=== PATIENT | female | born 1950 | race Caucasian/White ===

== ENCOUNTER → 2017-06-21 | Outpatient (CLI) | payer MEDICARE, OTHER ==
[~2017-06-21] MED LIST: CATHETER FLUSH 10 ML SYR IV PRN; REGADENOSON 0.4 MG/5 ML SYR (LEXISCAN) IV ONE
[2017-06-21 09:38] VITALS: BP 147/81
--- NOTE | 2017-06-21 21:05 | STRESS TEST ---
DATE OF SERVICE: 06/21/2017 LEXISCAN MYOVIEW STRESS TEST REPORT Baseline heart rate is 71. Baseline blood pressure is 147/81. Baseline EKG is sinus rhythm with no ischemic changes. In summary, the patient was injected with 10.50 mCi of technetium-99 Myoview and the resting images were obtained. Then, the patient received 0.4 mg of Lexiscan followed by 31.9 mCi of technetium-99 Myoview. Throughout the test, there were no EKG changes. The resting and stress images were reviewed and compared in the short axis, horizontal long axis and vertical long axis views. Review of the images showed breast attenuation with reversible ischemia involving the whole anterior wall, anterolateral wall and inferolateral wall. SSS is 21. SDS 15, TID value 0.98. On the gated images, the left ventricle appeared to be in normal size with normal contractility. Calculated ejection fraction is 73%. CONCLUSION: 1. The patient tolerated Lexiscan well. 2. Reversible ischemia involving the whole anterior wall, anterolateral wall and inferolateral wall. 3. Normal left ventricular size with normal contractility. Calculated ejection fraction is 71%. Job ID: [id number] DocumentID: [id number] Dictated Date: 06/21/2017 15:47:16 Financial Reporting Advisor Date: 06/21/2017 21:04:31 Dictated By: TAMRA KIM MD
== END ==
LOC: CARD 07:45
PROVIDERS: ATTEND Internal Medicine Cardiovascular Disease
DX: I25.10 Atherosclerotic heart disease of native coronary artery without angina pectoris (principal); R06.09 Other forms of dyspnea; I10 Essential (primary) hypertension; R01.1 Cardiac murmur, unspecified; E66.9 Obesity, unspecified
CPT/HCPCS: 78452; 93017

== ENCOUNTER 2017-06-28 06:46 | Day surgery (SDC) | payer MEDICARE, OTHER ==
[2017-06-28] VITALS (9 sets, daily range): BP systolic 119–133; BP diastolic 72–88
[~2017-06-28] VITALS: Ht 165.1 cm; Wt 132.4 kg
[2017-06-28] MEDS ORDERED: LIDOCAINE 1% INJ 50 ML (XYLOCAINE) VIAL ONE (06:56)
[2017-06-28] MEDS ORDERED: NS IV 1000 ML 1,000 ML ONE (06:56)
[2017-06-28] MEDS ORDERED: HEParin (CATH LAB) 2,000 ML IV ONE (06:56)
[2017-06-28] MEDS ORDERED: NS IV 1000 ML 1,000 ML IV SCH ×2 (07:00→09:13)
[2017-06-28 07:33] LABS: BILIRUBIN,URINE NEGATIVE (NEGATIVE); CLARITY,URINE SLIGHTLY CLOUDY; COLOR,URINE YELLOW; GLUCOSE, URINE (UA) NEGATIVE (NEGATIVE); KETONES,URINE NEGATIVE (NEGATIVE); LEUKOCYTE ESTERASE ,URINE 3+ (NEGATIVE); NITRITE,URINE NEGATIVE (NEGATIVE); PH,URINE 5 (5-9); PROTEIN,URINE 2+ (NEGATIVE); UROBILINOGEN,URINE 1 MG/DL (NORMAL)
[2017-06-28 07:34] LABS: HEMOGLOBIN 14.7 G/DL (11.5-16.0); MEAN PLATELET VOLUME 12.1 FL (7.4-10.4); RED BLOOD COUNT 4.46 10^6/uL (4.35-5.85); RED CELL DISTRIBUTION WIDTH 12.4 % (10.0-14.5); WHITE BLOOD COUNT 7.9 10^3/uL (4.3-11.0)
--- NOTE | 2017-06-28 07:38 | Diagnostic Imaging Report ---
INDICATION: Pre-heart catheter. FINDINGS: Portable chest show the lungs to be well-aerated and clear. The heart is not enlarged. There is no pulmonary edema. No hilar adenopathy. No pneumothorax or pleural effusion. IMPRESSION: Normal portable chest. Dictated by: Dictated on workstation # [id number]
[2017-06-28 07:41] LABS: BACTERIA,URINE FEW /HPF; HYALINE CASTS, URINE >50 /LPF; WBC,URINE 50-100 /HPF
[2017-06-28 07:44] LABS: PROTHROMBIN TIME PATIENT 13.1 SEC (12.2-14.7)
[2017-06-28] MEDS ORDERED: METO-333 PO (07:51)
[2017-06-28] MEDS ORDERED: VENL150C PO (07:51)
[2017-06-28] MEDS ORDERED: IBUP-2055 PO (07:51)
[2017-06-28] MEDS ORDERED: VALS160T28 PO (07:51)
[2017-06-28 07:53] LABS: ALBUMIN 4.3 GM/DL (3.2-4.5); BILIRUBIN,TOTAL 0.7 MG/DL (0.1-1.0); CALCIUM 9.2 MG/DL (8.5-10.1); CREATININE SERUM 1.01 MG/DL (0.60-1.30); POTASSIUM 4.5 MMOL/L (3.6-5.0); TOTAL PROTEIN 7.7 GM/DL (6.4-8.2)
[2017-06-28] MEDS ORDERED: MIDAZOLAM 5 MG/5 ML (VERSED) VIAL ONE (08:06)
[2017-06-28] MEDS ORDERED: fentaNYL INJECTION 100 MCG/2 ML AMP ONE (08:06)
[2017-06-28] MEDS ORDERED: VERAPAMIL 5 MG/2 ML (CALAN) VIAL IV ONE (08:06)
[2017-06-28] MEDS ORDERED: NITROGLYCERIN DRIP 25 MG/D5W 250 ML IV ONE (08:06)
[2017-06-28] MEDS ORDERED: HEParin 1000 UNIT/ML (10ML VIAL) FOR BOLUS ONE (08:06)
[2017-06-28] MEDS ORDERED: INFLUENZA TRIvalent 2017-2018 0.5 ML/45 MCG SYR IM ONE (08:15)
--- NOTE | 2017-06-28 08:46 | Cardiac Procedure Note-CS/ASA ---
Pre-Procedure Note Pre-Op Procedure Note H&P Reviewed The H&P was reviewed, patient examined and no changes noted. Date H&P Reviewed: Jun 28, 2017 Time H&P Reviewed: 08:45 Conscious Sedation Pre-Proced Time Reviewed: 08:45 ASA Class: 3 Airway Mallampati Classification: ([place] appropriate class) I. II. III, IV Lungs Heart ASA score ASA 1: a normal healthy patient ASA 2: a patient with a mild systemic disease (mid diabetes, controlled hypertension, obesity x ASA 3: a patient with a severe systemic disease that limits activity (angina , COPD, prior Myocardial infarction) ASA 4: a patient with an incapacitating disease that is a constant threat to life (CHF, renal failure) ASA 5: a moribund patient not expected to survive 24 hrs. (ruptured aneurysm) ASA 6: a declared brain patient whose organs are being harvested. For emergent operations, add the letter E after the classification Grade 3 Sedation Plan: Analgesia, Amnesia, Plan communicated to team members, Discussed options with patient/fam, Discussed risks with patient/fam Note The patient is an appropriate candidate to undergo the planned procedure, sedation, and anesthesia. The patient immediately re-assessed prior to indication. TAMRA KIM MD Jun 28, 2017 08:45
[2017-06-28] MEDS ORDERED: ATOR10TA PO (09:16)
--- NOTE | 2017-06-28 09:17 | Discharge Inst-Post CATH ---
Discharge Inst-CATH Post Cardiac Cath D/C Inst Follow Up/Plan Appointment with Dr Newell's office in 2-4 weeks CARDIAC CATH DISCHARGE INSTRUCTIONS *Hold Metformin for 48 hours post heart cath. ACTIVITY * Go Home directly and rest. * Limit activity of the leg (or wrist if it was used) for 7 days including aerobics, swimming, jogging, bicycling, etc. * Restrict stair-climbing for 7 days if possible, if not, climb up with your non -cath leg, then bring together on the same step. * Avoid lifting, pushing, pulling or excessive movement of the affected extremity for 7 days. * Customary sexual activity may be resumed after 2 days-use caution not to use a position that strains or causes pain to the affected extremity. * No driving for 24 hours. * NO SMOKING. * Avoid straining for bowel movements for 7 days. * Gentle walking on level ground is allowed. * Returning to work will depend on the type of procedure and the results. Your doctor will discuss this with you. CALL YOUR DOCTOR FOR ANY OF THE FOLLOWING: *If bleeding from the puncture site occurs- Apply gentle pressure to site with clean cloth and call your doctor or EMS. * If a knot or lump forms under the skin, increases in size, or causes pain. * If bruising appears to be worsening or moving further down your leg instead of disappearing. * Temperature above 101 F. CARE OF YOUR GROIN INCISION; * Bruising or purple discoloration of the skin near the puncture site is common. * You may shower only, no bathtub bathing for 5 days. Be careful to avoid slipping as your leg may feel stiff. * If a closure device was used on your femoral artery, please see the attached guide regarding care of the device and your leg. * REMOVE the dressing from your groin the next day after your procedure in the shower. CARE OF YOUR WRIST INCISION; * Bruising or purple discoloration of the skin near the puncture site is common. * You may shower. * DO NOT submerge wrist. * Remove dressing in 24 hours. TAMRA NEWELL MD Jun 28, 2017 09:17
--- NOTE | 2017-06-28 09:22 | Cardiac Cath Report ---
Cardiac Cath Report Physician (s)/Recreation Facility Manager (s) Physician TAMRA KIM MD Pre-Procedure Diagnosis Pre-Procedure Diagnosis: Coronary artery disease Post-Procedure Note Procedure Start Date: Jun 28, 2017 Name of Procedure: Left heart catheterization, left ventricular gram Findings/Procedure Note PROCEDURE NOTE: After explaining the procedure to the patient, all pros and cons were explained, all questions were answered. The patient signed the consent and then she was placed on the cardiac catheterization laboratory. The patient was placed on the cardiac catheterization laboratory. Groin and wrist was prepped SL fashion local anesthesia was used. Sheath placed in the right radial artery. Chilo catheter was used for coronary and left ventriculogram At the end of the procedure the sheath was removed. Vascuband was used FINDINGS: Hemodynamics LV 106 / 5 and diastolic pressure of 5 Aorta 109/73 mean of 78 ANATOMY: Left Main is free of obstructive disease Left Anterior Descending is slightly tortuous with slow flow, small vessel disease obstructive disease Left Circumflex is nondominant Right Coronory Artery is dominant artery, slow flow, small vessel disease nonobstructive disease LV Gram was done, normal left ventricular size and contracts 50 estimated ejection fraction 60-65 percent CONCLUSION: 1. Small vessel disease with slow flow in the LAD and right coronary artery, nonobstructive disease 2. Normal left ventricular size with normal contracted TSH ejection fraction 60 percent DISCUSSION AND RECOMMENDATION: Maximize medical therapy, monitor as an outpatient. Started on Lipitor in addition to her current medication Anesthesia Type: Conscious Sedation Estimated blood loss (mL): 5 ml Contrast Amount: 45 ml Total Radiation Dose: 1189 mGy Post-Procedure Diagnosis Post-operative diagnosis: Coronary artery disease Chest pain nonspecific etiology Hypertension Hyperlipidemia TAMRA KIM MD Jun 28, 2017 09:22
== END 2017-06-28 11:45 | disposition home or self-care (01) ==
LOC: CATH 06:46 → SURG 09:34 → CATH 11:45
PROVIDERS: ATTEND Physician Assistant
DX: I25.10 Atherosclerotic heart disease of native coronary artery without angina pectoris (principal); Z11.2 Encounter for screening for other bacterial diseases; I10 Essential (primary) hypertension; I35.0 Nonrheumatic aortic (valve) stenosis; R82.90 Unspecified abnormal findings in urine; E78.5 Hyperlipidemia, unspecified; E66.9 Obesity, unspecified; Z68.41 Body mass index [BMI] 40.0-44.9, adult; Z96.653 Presence of artificial knee joint, bilateral
CPT/HCPCS: 36415; 71045; 80053; 80061; 81000; 85027; 85610; 85730; 87077; 87081; 87088; 93458

== ENCOUNTER → 2018-12-31 | Outpatient (CLI) | payer MEDICARE, OTHER ==
[~2018-12-31] MED LIST changes: +ATOR10TA PO; -CATHETER FLUSH 10 ML SYR IV PRN; +IBUP-2055 PO; +METO-333 PO; -REGADENOSON 0.4 MG/5 ML SYR (LEXISCAN) IV ONE; +VALS160T29 PO; +VENL150C PO
== END ==
LOC: CARD 13:13
PROVIDERS: ATTEND Physician Assistant
DX: I11.9 Hypertensive heart disease without heart failure (principal); I35.0 Nonrheumatic aortic (valve) stenosis; I25.10 Atherosclerotic heart disease of native coronary artery without angina pectoris
CPT/HCPCS: 93306

== ENCOUNTER → 2019-03-28 | Outpatient (CLI) | payer MEDICARE, OTHER | LOC: RAD 14:51 | PROVIDERS: ATTEND Nurse Practitioner Family | DX: Z12.31 Encounter for screening mammogram for malignant neoplasm of breast (principal) | CPT/HCPCS: 77067 ==

== ENCOUNTER 2020-03-04 21:22 | Emergency (ER) | payer MEDICARE, OTHER ==
[~2020-03-04] VITALS: Ht 172 cm; Wt 138.7 kg
[~2020-03-04 21:22] MED LIST changes: -IBUP-2055 PO; +IBUP-2473 PO
--- NOTE | 2020-03-04 21:44 | ED Fall/Injury ---
General Chief Complaint: Trauma-Non Activation Stated Complaint: FALL;TRAUMA NONACTIVATION Source: patient Exam Limitations: no limitations History of Present Illness Date Seen by Provider: Mar 04, 2020 Time Seen by Provider: 21:25 Initial Comments Patient is a 69yo female who presents to the ER by ambulance after a fall at home tonight. SHe states that she was bending over to pick something off the floor and lost her balance. She came down on her knees and then fell forward hitting her face on the edge of a cabinet. Patient denies any loss of consciousness. She is not having any visual changes. She denies severe headache. No nausea or vomiting. Patient is concerned about the amount of bruising and contusion to her right eye. All other review of systems reviewed and negative except as stated Location Injury Occurred: home Occurred: just prior to arrival (2029) Severity: moderate Injuries/Pain Location: face Context: lost balance, slipped Loss of Consciousness: no loss of consciousness Associated Symptoms (Fall): Denies Symptoms Allergies and Home Medications Allergies Coded Allergies: No Allergy Information Available (Unverified , 06/21/17) Home Medications Atorvastatin Calcium 10 Mg Tablet, 10 MG PO DAILY Prescribed by: TAMRA KIM on 06/28/17 0916 Ibuprofen 200 Mg Tablet, 200 MG PO PRN, (Reported) Metoprolol Tartrate 25 Mg Tablet, 12.5 MG PO DAILY, (Reported) Valsartan 160 Mg Tablet, 160 MG PO DAILY, (Reported) Venlafaxine HCl 150 Mg Cap.er.24h, 150 MG PO DAILY, (Reported) Patient Home Medication List Home Medication List Reviewed: Yes Review of Systems Review of Systems Constitutional: no symptoms reported Eyes: No Symptoms Reported; Denies Blurred Vision, Denies Vision Changes Ears, Nose, Mouth, Throat: no symptoms reported Respiratory: no symptoms reported Cardiovascular: no symptoms reported Gastrointestinal: no symptoms reported Musculoskeletal: no symptoms reported Skin: other (large contusion right eyebrow) Psychiatric/Neurological: Denies Headache, Denies Weakness Past Hwqihdi-Bqzcze-Aiznml Hx Patient Social History Alcohol Use: Regular Use Alcohol Beverage of Choice: Wine Recreational Drug Use: No Past Medical History Gastroesophageal Reflux Physical Exam Vital Signs Vital Signs - First Documented 03/04/20 03/04/20 21:25 22:22 Temp 36.7 Pulse 92 Resp 18 B/P (MAP) 167/89 (115) Pulse Ox 93 O2 Delivery Room Air Capillary Refill : Height, Weight, BMI Height: 5'5.00" Weight: 292lbs. 0.0oz. 132.920078vs; 48.6 BMI Method: General Appearance: WD/WN, no apparent distress HEENT: PERRL/EOMI, other (Patient has a large contusion with ecchymosis over the right brow, softball size) Neck: non-tender, full range of motion, normal inspection Cardiovascular: regular rate, rhythm, diastolic murmur Respiratory: chest non-tender, lungs clear, normal breath sounds, no resp iratory distress, no accessory muscle use Peripheral Pulses: 2+ Dorsalis Pedis (R), 2+ Left Dors-Pedis (L), 2+ Radial Pulses (R) Gastrointestinal: normal bowel sounds, non tender, soft Extremities: normal range of motion, non-tender, normal inspection Neurologic/Psychiatric: automobile brake bonder II-XII nml as tested, no motor/sensory deficits, alert, normal mood/affect, oriented x 3 Skin: ecchymosis (right supraorbital area, small abrasion) [place] Coma Score Best Eye Response: (4) Open Spontaneously Best Verbal Response: (5) Oriented Best Motor Response: (6) Obeys Commands April Total: 15 Progress/Results/Core Measures Results/Orders Vital Signs/I&O 03/04/20 03/04/20 21:25 22:22 Temp 36.7 Pulse 92 91 Resp 18 18 B/P (MAP) 167/89 (115) 149/88 (115) Pulse Ox 93 92 O2 Delivery Room Air Progress Progress Note : Progress Note Patient seen and examined. 69 yo with a mechanical trip and fall at home hitting her face on the corner of a cabinet. Patient eval includes a neurologic exam. She is alert and oriented, normal cranial nerves. No motor or sensory findings. Patient was observed in the ER and did well. Ambulatory without any complaints or n/v/headache. Supportive care at home, with ice packs to her large contusion above her right brow. Patient is counselled on head injury precautions and concussion. She verbalizes understanding. She is comfortable with the plan of care. All questions are sought and answered and she is stable for discharge. Departure Impression Primary Impression: Contusion of face Qualified Codes: S00.83XA - Contusion of other part of head, initial encounter Disposition: HOME, SELF-CARE Condition: Stable Departure-Patient Inst. Decision time for Depature: 21:52 Referrals: CLINT EVANGELISTA MD (PCP/Family) Primary Care Physician Patient Instructions: Eye Contusion (DC) Add. Discharge Instructions: Apply an ice pack off and on for the next 24 hours. You can take advil or tylenol as needed for pain. You can call the [facility] Referral line for a new doctor. Return to the Emergency Department for a re-evaluation of you have any new or worsening symptoms. All discharge instructions reviewed with patient and/or family. Voiced understanding. CARA DESIR MD Mar 04, 2020 21:44
--- NOTE | 2020-03-04 22:10 | NUR ---
PATIENT CALLS THIS RN TO ROOM ASKING "HAS IT BEEN 30MINUTES YET?" PATIENT STATES SHE FEELS FINE, DENIES NAUSEA. WILL REPORT TO DR REIS.
[2020-03-04 22:22] VITALS: BP 149/88
== END 2020-03-04 22:22 | disposition home or self-care (01) ==
LOC: EDUNIT# 21:22 → ER 21:23
DX: S00.83XA Contusion of other part of head, initial encounter (principal); R40.2410 Glasgow coma scale score 13-15, unspecified time; W01.0XXA Fall on same level from slipping, tripping and stumbling without subsequent striking against object, initial encounter; W22.8XXA Striking against or struck by other objects, initial encounter
CPT/HCPCS: 99282

== ENCOUNTER 2022-08-28 01:34 | Emergency (ER) | payer MEDICARE, OTHER ==
[~2022-08-28] VITALS: Ht 172.7 cm; Wt 136.0 kg
[~2022-08-28 01:34] MED LIST changes: -VENL150C PO; +VENL150C3 PO
[2022-08-28] MEDS ORDERED: OLME20TA24 (01:51)
[2022-08-28] MEDS ORDERED: LIDOCAINE 1% INJ 10 ML VIAL ONE (02:20)
[2022-08-28] MEDS ORDERED: AUGMENTIN 875 MG TAB (AMOXICILLIN/CLAVULANATE) PO STA (02:21)
[2022-08-28] MEDS ORDERED: AMOX1TAB12 PO ×2 (02:27→03:51)
--- NOTE | 2022-08-28 02:27 | ED Integumentary General ---
General Chief Complaint: Bite-Animal/Human/Insect Stated Complaint: LEFT ARM PAIN,DOG BITE Nursing Triage Note: bitten by family dog approx. 0120. pt reports dogs shots utd. pt reports last tetanus less than 5yrs ago. 2.5x7cm bite to left dorsal/distal arm. Source: patient Exam Limitations: no limitations History of Present Illness Date Seen by Provider: Aug 28, 2022 Time Seen by Provider: 02:10 Initial Comments Patient is a 72-year-old female who presents to the emergency department today with a chief complaint of dog bite to the left forearm. Patient states that she was sitting in her recliner chair with her 4 dogs sitting in her lap, everyone was sleeping. She woke up suddenly to the dogs fighting, she ended up on the floor trying to protect her smallest dog from the largest 1. She states she ended up getting bit. Tetanus shot is up-to-date for 5 months ago. She is not a diabetic. She complains of pain to the dorsum of the left forearm. She is right-hand dominant. No other complaints of injury or recent illness. Timing/Duration: just prior to arrival Severity: moderate Location: extremities (left upper) Possible Cause: other (dog bite) Associated Symptoms: other (pain) Allergies and Home Medications Allergies Coded Allergies: No Allergy Information Available (Unverified , 06/21/17) Patient Home Medication List Home Medication List Reviewed: Yes Amoxicillin/Potassium Clav (Amox Tr-K Clv 875-125 mg Tab) 875 Mg-125 Mg Tablet, 1 EACH PO BID Prescribed by: CARA DESIR on 08/28/22226 Olmesartan Medoxomil (Olmesartan Medoxomil) 20 Mg Tablet, (Reported) Entered as Reported by: MORENITA SUMMERS on 08/28/22 0151 Last Action: New Order Tramadol HCl (Tramadol HCl) 50 Mg Tablet, 50 MG PO Q6H PRN for PAIN Prescribed by: CARA DESIR on 08/28/22 033 Venlafaxine HCl (Effexor Xr) 150 Mg Cap.er.24h, 150 MG PO DAILY, (Reported) Entered as Reported by: SPENCER XAVIER on 06/28/17 0751 Discontinued Medications Atorvastatin Calcium (Lipitor) 10 Mg Tablet, 10 MG PO DAILY Discontinued Reason: No Longer Taking Prescribed by: TAMRA KIM on 06/28/17915 Last Action: Discontinued Ibuprofen (Ibuprofen) 200 Mg Tablet, 200 MG PO PRN, (Reported) Discontinued Reason: No Longer Taking Entered as Reported by: SPENCER XAVIER on 06/28/17750 Last Action: Discontinued Metoprolol Tartrate (Metoprolol Tartrate) 25 Mg Tablet, 12.5 MG PO DAILY, (Reported) Discontinued Reason: No Longer Taking Entered as Reported by: SPENCER XAVIER on 06/28/17750 Last Action: Discontinued Valsartan (Valsartan) 160 Mg Tablet, 160 MG PO DAILY, (Reported) Discontinued Reason: No Longer Taking Entered as Reported by: SPENCER XAVIER on 06/28/17750 Last Action: Discontinued Review of Systems Review of Systems Constitutional: see HPI Respiratory: no symptoms reported Cardiovascular: no symptoms reported Gastrointestinal: no symptoms reported Musculoskeletal: other (left wrist pain) Skin: other (large gaping wound left wrist) Past Mxvlcrk-Zynjzi-Ixpsza Hx Patient Social History Tobacco Use?: No Substance use?: No Alcohol Use?: Yes Alcohol Frequency: Once in a while Pt feels they are or have been: No Immunizations Up To Date First/Initial COVID19 Vaccinat: x2 Past Medical History Surgery/Hospitalization HX: htn, depression, bilateral knee, hip, ankle, cholecystectomy, face lift Gastroesophageal Reflux Physical Exam Vital Signs Vital Signs - First Documented 08/28/22 01:43 Temp 36.5 Pulse 133 Resp 18 B/P (MAP) 105/71 (82) Pulse Ox 93 O2 Delivery Room Air Capillary Refill : Less Than 3 Seconds General Appearance: WD/WN, no apparent distress HEENT: PERRL/EOMI Cardiovascular: regular rate, rhythm Respiratory: no respiratory distress, no accessory muscle use Extremities: other (limited ROM left shoulder due to pre-existing rotator cuff injury. left elbow normal ROM. left wrist - limited due to pain from dog bite) Neurologic/Psychiatric: alert, normal mood/affect, oriented x 3 Skin: normal color, warm/dry, other (large gaping wound dorsal left distal forearm. approx 7cm long and gaping 3cm. no active bleeding. extends through subq tissue to muscle belly. 2 small super ficial abrasions more prox on the dorsal forearm.) Procedures/Interventions Wound Location: Upper Extremities Other Wound Location dorsal wrist Wound Length (cm): 7 Wound's Depth, Shape: irregular, contused tissue, sub Q Wound Explored: clean Irrigated w/ Saline (ccs): 1000 Anesthesia: 1% Lidocaine Volume Anesthetic (ccs): 8 Wound Debrided: moderate Suture: Ethlion Suture Size: 4-0 Number of Sutures: 8 Layer Closure?: 1 Sterile Dressing Applied?: Yes Progress 2 horizontal mattress sutures and 6 superficial interrupted sutures Progress/Results/Core Measures Results/Orders My Orders Orders - CARA DESIR MD Wrist, Left, 3 Views Or More (08/28/22 02:21) Amoxicillin/Clavulanate Tablet (Augmenti (08/28/22 02:21) Lidocaine 1% Inj 10 Ml (Xylocaine 1% Inj (08/28/22 02:20) Tramadol Tablet (Ultram Tablet) (08/28/22 03:45) Medications Given in ED Current Medications Medications Dose Ordered Sig/Gian Route Start Time Stop Time Status Last Admin Dose Admin Lidocaine HCl 10 ml STK-MED ONCE .ROUTE 08/28/22 02:20 08/28/22 02:22 DC 08/28/22 02:28 10 ML Tramadol HCl 50 mg ONCE ONCE PO 08/28/22 03:45 08/28/22 03:46 DC 08/28/22 03:47 50 MG Vital Signs/I&O 08/28/22 08/28/22 08/28/22 01:43 03:40 03:47 Temp 36.5 36.7 36.5 Pulse 133 101 Resp 18 16 B/P (MAP) 105/71 (82) 107/73 Pulse Ox 93 95 O2 Delivery Room Air Room Air Blood Pressure Mean: 82 Diagnostic Imaging Diagonstic Imaging: Xray Comments wrist xray - independent interpretation by me - no fracture or foreign body Departure Impression Primary Impression: Dog bite Qualified Codes: W54.0XXA - Bitten by dog, initial encounter Disposition: 01 HOME, SELF-CARE Condition: Improved Departure-Patient Inst. Decision time for Depature: 03:35 Patient Instructions: Animal Bites ED Add. Discharge Instructions: Keep the wound clean dry and covered. You can change the dressing in 24 hours. Tramadol 50mg, 1 tablet every 6 hours as needed for pain. You can also take over the counter ibuprofen 600mg every 6 hours with food for pain. Wash with a mild soap and water twice daily. Take the antibiotics 1 pill twice a day for 7 days. Finish the entire course. Your stitches will need to come out in 10 to 12 days. You can come back here to the emergency department and a nurse in triage will remove them after doing a wound evaluation. Call Dr Laureano's office on Monday for a follow up appointment at the beginning of the week. She can refer you in to a wound care appointment. If you develop increasing pain, redness, swelling or drainage from the wound please return to the emergency department for reevaluation. Scripts Tramadol HCl (Tramadol HCl) 50 Mg Tablet 50 MG PO Q6H PRN for PAIN, #8 TAB 0 Refills Prov: CARA DESIR MD 08/28/22 Amoxicillin/Potassium Clav (Amox Tr-K Clv 875-125 mg Tab) 875 Mg-125 Mg Tablet 1 EACH PO BID, #13 TAB Prov: CARA DESIR MD 08/28/22 Copy Copies To 1: CLINT EVANGELISTA MD, KATHRYN M MD Aug 28, 2022 02:27
[2022-08-28] MEDS ORDERED: TRM50T PO ×2 (03:37→03:51)
[2022-08-28 03:40] VITALS: BP 107/73
--- NOTE | 2022-08-28 06:47 | Diagnostic Imaging Report ---
Indication: Dogbite. Findings: Soft tissue irregularities about the dorsum of the distal forearm as well as a along its radial margin. No retained opaque foreign body identified and no appreciable fracture. No dissecting gas. There are arthritic changes to the carpus. Impression: Soft tissue injury and degenerative disease. No retained opaque foreign body or acute osseous injury apparent. Dictated by: Dictated on workstation # [id number]
== END 2022-08-28 03:48 | disposition home or self-care (01) ==
LOC: EDUNIT# 01:34 → ER 01:39
DX: S51.852A Open bite of left forearm, initial encounter (principal); W54.0XXA Bitten by dog, initial encounter
CPT/HCPCS: 11010; 12034; 73110

== ENCOUNTER 2022-12-13 14:23 | Outpatient (RCR) | payer MEDICARE, OTHER ==
[~2022-12-13 14:23] MED LIST changes: +AMOX1TAB12 PO; +OLME20TA24; +TRM50T PO
== END 2022-12-19 | disposition home or self-care (01) ==
PROVIDERS: ATTEND Orthopaedic Surgery
DX: Z96.612 Presence of left artificial shoulder joint (principal)

== ENCOUNTER 2023-01-17 11:26 | Outpatient (RCR) | payer MEDICARE, OTHER | END 2023-01-19 | disposition home or self-care (01) | PROVIDERS: ATTEND Orthopaedic Surgery | DX: Z96.612 Presence of left artificial shoulder joint (principal) ==

== ENCOUNTER 2023-03-25 03:17 | Emergency (ER) | payer MEDICARE, OTHER ==
[~2023-03-25] VITALS: Ht 173 cm; Wt 136.0 kg
--- NOTE | 2023-03-25 03:31 | ED Fall/Injury ---
General Stated Complaint: FALL Source: patient History of Present Illness Date Seen by Provider: Mar 25, 2023 Time Seen by Provider: 03:19 Initial Comments PT ARRIVES VIA EMS FROM HOME--PT LIVES AT HOME ALONE WITH HER DOGS NO TREATMENT OR IMMOBILIZATION BY EMS--CERVICAL COLLAR PLACED ON ARRIVAL TO ER PT HAD AN UNWITNESSED FALL AT HOME PT STATES SHE SLIPPED ON WATER ON THE FLOOR AND FELL FACE DOWN ONTO TILE FLOOR SHE C/O PAIN TO HER HEAD AND FACE SHE ALSO C/O LEFT KNEE PAIN --LANDED ON BOTH KNEES, BUT PAIN IS MOSTLY ON THE LEFT SHE DENIES LOSS OF CONSCIOUSNESS HAS LACERATION AND LARGE HEMATOMA TO FOREHEAD SHE ALSO HAS LARGE LACERATION TO LEFT KNEE SHE HAS HAD BILATERAL KNEE REPLACEMENTS SHE DENIES NECK OR BACK PAIN DENIES CHEST OR ABDOMINAL PAIN DENIES SHORTNESS OF BREATH DENIES NAUSEA/VOMITING DENIES VISION CHANGES DENIES DIZZINESS DENIES PARESTHESIAS OR MOTOR DEFICITS. PT STATES SHE HAS BEEN DRINKING WINE TONIGHT--"HALF A BOTTLE" PT DRINKS ON A REGULAR BASIS SHE STATES SHE IS NOT ON ASPIRIN OR BLOOD THINNERS STATES SHE IS UP TO DATE ON TETANUS VACCINATION--ABOUT A YEAR AGO. PCP: DR. YI, WITH [place] Allergies and Home Medications Allergies Coded Allergies: No Allergy Information Available (Unverified , 06/21/17) Patient Home Medication List Home Medication List Reviewed: Yes Amoxicillin/Potassium Clav (Amox Tr-K Clv 875-125 mg Tab) 875 Mg-125 Mg Tablet, 1 EACH PO BID Prescribed by: CARA DESIR on 08/28/22350 Cephalexin (Cephalexin) 500 Mg Tablet, 500 MG PO QID Prescribed by: ZULEMA RICE on 03/25/23512 Olmesartan Medoxomil (Olmesartan Medoxomil) 20 Mg Tablet, (Reported) Entered as Reported by: MORENITA SUMMERS on 08/28/22 015 Tramadol HCl (Tramadol HCl) 50 Mg Tablet, 50 MG PO Q6H PRN for PAIN Prescribed by: CARA DESIR on 08/28/22351 Tramadol HCl (Tramadol HCl) 50 Mg Tablet, 50 MG PO Q4H Prescribed by: ZULEMA RICE on 03/25/23512 Venlafaxine HCl (Effexor Xr) 150 Mg Cap.er.24h, 150 MG PO DAILY, (Reported) Entered as Reported by: SPENCER XAVIER on 06/28/17 0751 Review of Systems Review of Systems Constitutional: no symptoms reported Eyes: No Symptoms Reported Ears, Nose, Mouth, Throat: no symptoms reported Respiratory: no symptoms reported Cardiovascular: no symptoms reported Gastrointestinal: no symptoms reported Genitourinary: no symptoms reported Musculoskeletal: see HPI Skin: see HPI Psychiatric/Neurological: See HPI Past Qwzsets-Xgklzz-Sxagnq Hx Patient Social History Tobacco Use?: No Substance use?: No Alcohol Use?: Yes Alcohol type: Wine Alcohol Frequency: Daily Immunizations Up To Date First/Initial COVID19 Vaccinat: x2 Past Medical History Surgery/Hospitalization HX: htn, depression, bilateral knee, hip, ankle, cholecystectomy, face lift Surgeries: Yes Gallbladder, Joint Replacement, Orthopedic Respiratory: No Cardiac: Yes Hypertension 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 0.0oz. 132.172053cm; 45.00 BMI Method: General Appearance: WD/WN, no apparent distress, obese, other (REEKS OF ALCOHOL) HEENT: PERRL/EOMI, TMs normal, pharynx normal, other (LARGE HEMATOMA AND 2 CM LACERATION TO FOREHEAD) Neck: other (PLACED IN CERVICAL COLLAR ON ARRIVAL) Cardiovascular: no murmur, tachycardia Respiratory: chest non-tender, normal breath sounds, no respiratory distress Gastrointestinal: non tender, soft Back: no CVA tenderness Extremities: normal range of motion, normal capillary refill, pedal edema (TRACE BILATERALLY), other (BRUISING TO RIGHT KNEE; IRREGULAR 7 CM C-SHAPED VERY SUPEFICIAL FLAP LACERATION/SKIN TEAR TO LEFT KNEE, WITH SWELLING AND BRUISING. BOTH KNEES TENDER, BUT LEFT > RIGHT. 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 INJECTED WITH 1% LIDOCAINE PLAIN CLOSED WITH # 14 MARJORIE LEFT KNEE DRESSED STERILE DRESSING Progress/Results/Core Measures Results/Orders Lab Results Laboratory Tests Test 03/25/23 03:35 Range/Units White Blood Count 8.1 4.3-11.0 10^3/uL Red Blood Count 4.12 3.80-5.11 10^6/uL Hemoglobin 14.1 11.5-16.0 g/dL Hematocrit 43 35-52 % Mean Corpuscular Volume 104 H 80-99 fL Mean Corpuscular Hemoglobin 34 25-34 pg Mean Corpuscular Hemoglobin Concent 33 32-36 g/dL Red Cell Distribution Width 12.6 10.0-14.5 % Platelet Count 244 130-400 10^3/uL Mean Platelet Volume 11.5 9.0-12.2 fL Immature Granulocyte % (Auto) 1 % Neutrophils (%) (Auto) 67 42-75 % Lymphocytes (%) (Auto) 24 12-44 % Monocytes (%) (Auto) 5 0-12 % Eosinophils (%) (Auto) 3 0-10 % Basophils (%) (Auto) 1 0-10 % Neutrophils # (Auto) 5.4 1.8-7.8 10^3/uL Lymphocytes # (Auto) 2.0 1.0-4.0 10^3/uL Monocytes # (Auto) 0.4 0.0-1.0 10^3/uL Eosinophils # (Auto) 0.2 0.0-0.3 10^3/uL Basophils # (Auto) 0.1 0.0-0.1 10^3/uL Immature Granulocyte # (Auto) 0.0 0.0-0.1 10^3/uL Prothrombin Time 12.8 12.2-14.7 SEC INR Comment 0.9 0.8-1.4 Activated Partial Thromboplast Time 26 24-35 SEC Sodium Level 141 135-145 MMOL/L Potassium Level 4.0 3.6-5.0 MMOL/L Chloride Level 108 H 98-107 MMOL/L Carbon Dioxide Level 18 L 21-32 MMOL/L Anion Gap 15 H 5-14 MMOL/L Blood Urea Nitrogen 19 H 7-18 MG/DL Creatinine 0.82 0.60-1.30 MG/DL Estimat Glomerular Filtration Rate 76 BUN/Creatinine Ratio 23 Glucose Level 100 70-105 MG/DL Calcium Level 8.6 8.5-10.1 MG/DL Corrected Calcium 8.8 8.5-10.1 MG/DL Total Bilirubin 0.2 0.1-1.0 MG/DL Aspartate Amino Transf (AST/SGOT) 21 5-34 U/L Alanine Aminotransferase (ALT/SGPT) 21 0-55 U/L Alkaline Phosphatase 75 40-136 U/L Total Protein 6.7 6.4-8.2 GM/DL Albumin 3.8 3.2-4.5 GM/DL Serum Alcohol 169 H <10 MG/DL My Orders Orders - ZULEMA RICE DO Ed Iv/Invasive Line Start (03/25/23 03:25) Monitor-Rhythm Ecg Trace Only (03/25/23 03:25) Ct Head/Face/Cervical Wo (03/25/23 03:25) Alcohol (03/25/23 03:25) Cbc And Automated Diff (03/25/23 03:25) Comprehensive Metabolic Panel (03/25/23 03:25) Protime With Inr (03/25/23 03:25) Partial Thromboplastin Time (03/25/23 03:25) Chest 1 View, Ap/Pa Only (03/25/23 03:25) Pelvis 1 To 2 Views (03/25/23 03:25) Knee, Bilateral, W/Barry 4v. (03/25/23 03:25) Cervical Collar (03/25/23 03:25) Ed Iv/Invasive Line Start (03/25/23 03:42) Lactated Ringers 1,000 Ml (Lactated Ring (03/25/23 03:45) Ondansetron Injection (Ondansetron Inj (03/25/23 04:15) Ondansetron Injection (Ondansetron Inj (03/25/23 04:02) Rx-Cephalexin Capsule (Rx-Keflex Capsule (03/25/23 05:02) Wound Dressing-Ed (03/25/23 05:02) Medications Given in ED Current Medications Medications Dose Ordered Sig/Gian Route Start Time Stop Time Status Last Admin Dose Admin Lactated Ringer's 1,000 ml @ 0 mls/hr Q0M ONCE IV 03/25/23 03:45 03/25/23 03:46 DC 03/25/23 04:20 0 MLS/HR Ondansetron HCl 8 mg ONCE ONCE IVP 03/25/23 04:15 03/25/23 04:16 DC 03/25/23 04:10 8 MG Vital Signs/I&O 03/25/23 03:20 Temp 36.5 Pulse 113 Resp 18 B/P (MAP) 117/82 (94) Pulse Ox 94 O2 Delivery Room Air Progress Progress Note : Progress Note VITALS ON ARRIVAL: TEMP 36.5=97.7, HR 113, RR 18, BP 117/82, O2 SAT 94% ON ROOM AIR GIVEN: -IV FLUIDS LABS: -CBC NORMAL -CMP UNREMARKABLE -PT/PTT/INR NORMAL -ETOH 169 CT HEAD/MAXILLOFACIALS/CERVICAL SPINE--SOFT TISSUE INJURY TO FRONTAL AREA, AND NO ACUTE INTRACRANIAL OR BONY INJURY XRAYS OF CHEST, PELVIS AND BILATERAL KNEES -NO ACUTE PROCESS, PENDING RADIOLOGIST REVIEW VITALS STABLE CERVICAL COLLAR REMOVED AFTER RECEIVING CT RESULTS READ BY RADIOLOGIST NECK IS NON-TENDER TO PALPATION AND PT DENIES ANY NECK PAIN AFTER REMOVAL. ` PT IS NEUROLOGICALLY INTACT SHE DENIES HEADACHE OR NAUSEA/VOMITING OR DIZZINESS, OR PARESTHESIAS OR VISION CHANGES. DISCUSSED ALL TEST RESULTS, ANTICIPATED COURSE, SYMPTOMATIC TREATMENT, MEDICATIONS, NEED FOR FOLLOW UP AND RETURN PRECAUTIONS ALSO DISCUSSED WOUND CARE. DISCUSSED CONCERN ABOUT KNEE LACERATION, THE SKIN FLAP IS VERY THIN AND IS ESSENTIALLY A SKIN TEAR, AND THAT IT MAY NOT HOLD MARJORIE, AND EXPECTANT COURSE OF THE WOUND DISCUSSED LIMITING ANY BENDING OF LEFT KNEE UNTIL THE WOUND IS HEALED PT'S BODY HABITUS WILL NOT ACCOMODATE KNEE IMMOBILIZER, ADVISED TO KEEP THE AREA WRAPPED WITH JUAN ALBERTO WRAP TO LIMIT BENDING OF KNEE. REVIEWED PRIOR RECORDS--2 PRIOR ER VISITS, AND ONE VISIT WAS FOR A FALL WELL, Diagnostic Imaging Comments XRAYS ALL PENDING RADIOLOGIST REVIEW: CXR--NO ACUTE PROCESS PELVIS XRAY--NO ACUTE PROCESS BILATERAL KNEE XRAYS--NO ACUTE PROCESS, HARDWARE APPEARS INTACT CT HEAD/MAXILLOFACIALS/CERVICAL SPINE--PER [facility] VIA FAX AT 1944 -LARGE FOCAL SOFT TISSUE SWELLING, HEMATOMA AND LACERATION OVERLYING ANTERIOR LEFT FRONTAL BONE WITHOUT UNDERLYING CALVARIAL FRACTURE -NO ACUTE INTRACRANIAL HEMORRHAGE OR MASS OR ACUTE INTRACRANIAL FINDINGS. -UNREMARKABLE MAXILLOFACIAL CT -UNREMARKABLE CERVICAL SPINE CT Reviewed: Reviewed by Me Departure Impression Primary Impression: Unwitnessed fall Additional Impressions: Closed head injury Forehead contusion Forehead laceration Neck strain BILATERAL KNEE CONTUSIONS Laceration of left knee Alcohol intoxication Disposition: HOME, SELF-CARE Condition: Stable Departure-Patient Inst. Decision time for Depature: 05:05 Referrals: IRINA SMITH MD (PCP) Primary Care Physician Patient Instructions: Cervical Sprain ED, Concussion, Adult (DC), Contusion (DC), Eye Contusion (DC), Preventing Falls ED, Alcohol Intoxication ED, General Trauma, Adult ED Add. Discharge Instructions: ICE TO SORE AREAS AT 20 MINUTE INTERVALS ELEVATE LEGS MUCH POSSIBLE TYLENOL NEEDED FOR PAIN FOR THE FIRST 24 HOURS CONTINUE YOUR REGULAR MEDICATIONS PRESCRIBED FOR YOUR FOREHEAD WOUND---KEEP AREA CLEAN AND DRY. DO NOT GET WET. NO LOTIONS, CREAMS OR OINTMENTS. LEAVE THE AREA ALONE--THE STERI STRIPS AND THEN THE SKIN GLUE WILL FALL OFF ON THEIR OWN IN A FEW DAYS. DO NOT PICK AT THE STERI STRIPS OR SKIN GLUE FOR YOUR KNEE WOUND--KEEP AREA CLEAN AND DRY. YOU MAY GENTLY CLEAN THE AREA TWICE A DAY WITH ANTIBACTERIAL SOAP AND WATER WITH A Q-TIP, THEN PAT DRY. APPLY FRESH DRESSING TO THE KNEE TWICE A DAY USE JUAN ALBERTO WRAP TO YOUR KNEE AND AVOID BENDING THE KNEE MUCH POSSIBLE RETURN TO ER IN 10-14 DAYS FOR STAPLE REMOVAL. RETURN TO ER IF YOU HAVE ANY WORSENING OF SYMPTOMS Scripts Cephalexin (Cephalexin) 500 Mg Tablet 500 MG PO QID, #40 TAB Prov: ZULEMA RICE DO 03/25/23 Tramadol HCl (Tramadol HCl) 50 Mg Tablet 50 MG PO Q4H for Pain, #20 TAB Prov: ZULEMA RICE DO 03/25/23 ZULEMA RICE DO Mar 25, 2023 03:31
[2023-03-25 03:44] LABS: BASOPHILS # (AUTO) 0.1 10^3/uL (0.0-0.1); BASOPHILS % (AUTO) 1 % (0-10); EOSINOPHILS # (AUTO) 0.2 10^3/uL (0.0-0.3); EOSINOPHILS % (AUTO) 3 % (0-10); HEMATOCRIT 43 % (35-52); HEMOGLOBIN 14.1 g/dL (11.5-16.0); LYMPHOCYTES % (AUTO) 24 % (12-44); MEAN CORPUSCULAR HEMOGLOBIN 34 pg (25-34); MEAN CORPUSCULAR HGB CONC 33 g/dL (32-36); MEAN CORPUSCULAR VOLUME 104 fL (80-99); MEAN PLATELET VOLUME 11.5 fL (9.0-12.2); MONOCYTES # (AUTO) 0.4 10^3/uL (0.0-1.0); MONOCYTES % (AUTO) 5 % (0-12); NEUTROPHILS # (AUTO) 5.4 10^3/uL (1.8-7.8); NEUTROPHILS % (AUTO) 67 % (42-75); PLATELET COUNT 244 10^3/uL (130-400); WHITE BLOOD COUNT 8.1 10^3/uL (4.3-11.0)
[2023-03-25] MEDS ORDERED: LACTATED RINGERS 1,000 ML 1,000 ML IV ONE (03:45)
[2023-03-25 03:54] LABS: INR 0.9 (0.8-1.4); PROTHROMBIN TIME PATIENT 12.8 SEC (12.2-14.7)
[2023-03-25 03:56] LABS: ALBUMIN 3.8 GM/DL (3.2-4.5)
[2023-03-25 03:57] LABS: CALCIUM 8.6 MG/DL (8.5-10.1)
[2023-03-25 03:59] LABS: TOTAL PROTEIN 6.7 GM/DL (6.4-8.2)
[2023-03-25 04:00] LABS: BILIRUBIN,TOTAL 0.2 MG/DL (0.1-1.0)
[2023-03-25 04:02] LABS: CREATININE SERUM 0.82 MG/DL (0.60-1.30)
[2023-03-25] MEDS ORDERED: ONDANSETRON INJECTION 4 MG/2 ML (SDV) ONE (04:02)
[2023-03-25] MEDS ORDERED: ONDANSETRON INJECTION 4 MG/2 ML (SDV) IVP ONE (04:15)
[2023-03-25] MEDS ORDERED: RX-CEPHALEXIN (KEFLEX) 250 MG CAP PPK#4 PO STA (05:02)
[2023-03-25] MEDS ORDERED: TRAM50TA3 PO ×2 (05:11→05:12)
[2023-03-25] MEDS ORDERED: CEPH500T PO (05:13)
[2023-03-25 05:18] VITALS: BP 125/76
--- NOTE | 2023-03-25 06:12 | Diagnostic Imaging Report ---
INDICATION: Bilateral knee pain. Trauma and fall. FINDINGS: The patient is status post a previous bilateral total knee arthroplasty. The prosthetic components are appropriately positioned. There is no lucency around the components. There are no findings of a periprosthetic fracture or knee malalignment. There is no significant knee joint effusion or hemarthrosis. There is no focal soft tissue abnormality. IMPRESSION: 1. Previous bilateral knee arthroplasties. No findings of malalignment or acute fracture. No hardware complication. Dictated by: Dictated on workstation # [id number]
--- NOTE | 2023-03-25 06:14 | Diagnostic Imaging Report ---
INDICATION: Fall. Pelvic pain. Trauma. FINDINGS: The patient is status post a previous left hip arthroplasty. There is no evidence of dislocation or identified periprosthetic fracture. There are advanced right hip arthritic changes. The right femoral head maintains normal morphology. There is no pelvic diastases. The pelvic ring appears intact. IMPRESSION: 1. Left hip arthroplasty without identified dislocation or periprosthetic fracture 2. Advanced right hip osteoarthritic changes. 3. The pelvic ring appears intact without evidence of diastases. Dictated by: Dictated on workstation # [id number]
--- NOTE | 2023-03-25 06:15 | Diagnostic Imaging Report ---
INDICATION: Fall. Pain. COMPARISON: 06/28/2017 FINDINGS: Lungs are clear without evidence of pneumonia or edema. There is mild elevation of the right hemidiaphragm. There is no large effusion or pneumothorax. Heart size is appropriate for AP technique. Central pulmonary vascularity appropriate without evidence of edema or failure. There has been a prior left shoulder arthroplasty. There is no acute fracture identified. IMPRESSION: 1. No radiographic evidence of an acute cardiopulmonary process. Dictated by: Dictated on workstation # [id number]
--- NOTE | 2023-03-25 06:36 | Diagnostic Imaging Report ---
PROCEDURE: CT head, face, and cervical spine without contrast. TECHNIQUE: Multiple contiguous axial images were obtained through the head, neck, and facial bones without the use of intravenous contrast. Sagittal and coronal reformations through the cervical spine and facial bones were also performed. Auto Exposure Controls were utilized during the CT exam to meet ALARA standards for radiation dose reduction. INDICATION: Trauma. Head and neck pain. Fall. Periorbital laceration. No comparison available FINDINGS: There is a soft tissue hematoma with skin laceration overlying the left supraorbital forehead. There is no underlying calvarial or orbital fracture identified. The intracranial contents demonstrate age-related volume loss. There is no acute intracranial hemorrhage. There is no extra-axial collection. There is no intracranial mass effect or shift. There is no hydrocephalus. There is no territorial loss of quarles-white differentiation. There are no findings of edema. Basilar cisterns are patent. The mastoid air cells are clear. There is no fluid level in the paranasal sinuses. The orbital contents unremarkable. CT of the face demonstrates no evidence of an acute orbital fracture. There is no fracture of the nasal bones. The maxillary sinuses are intact. There is no fracture of the zygomatic arches or of the pterygoids. There are no findings of TMJ dislocation or acute mandibular fracture. CT cervical spine demonstrates normal alignment. There are normal relationships of the craniocervical junction. There are normal relationships of the lateral masses of C1 and C2. The facets are normally aligned. There is no facet joint or disc space widening. There are multilevel endplate changes but vertebral body heights are maintained without evidence of an acute cervical spine fracture. There are multilevel endplate changes with endplate spurring and disc bulging with the most advanced canal and foraminal stenosis appearing to be at the C4-C5 and C5-C6 levels. The lung apices are clear. Soft tissues of the neck demonstrate no acute process. There has been a prior left shoulder arthroplasty. IMPRESSION: 1. Large left supraorbital soft tissue hematoma and skin laceration without underlying calvarial or orbital fracture. 2. No CT evidence of intracranial hemorrhage or of an acute intracranial abnormality. 3. No acute facial fractures. 4. Background degenerative features within the cervical spine without findings of fracture or traumatic malalignment. 5. I agree with the preliminary [facility] report. Dictated by: Dictated on workstation # [id number]
== END 2023-03-25 05:30 | disposition home or self-care (01) ==
LOC: EDUNIT# 03:17 → ER 03:18
DX: S09.90XA Unspecified injury of head, initial encounter (principal); S01.81XA Laceration without foreign body of other part of head, initial encounter; S81.012A Laceration without foreign body, left knee, initial encounter; S16.1XXA Strain of muscle, fascia and tendon at neck level, initial encounter; S80.01XA Contusion of right knee, initial encounter; F10.129 Alcohol abuse with intoxication, unspecified; W19.XXXA Unspecified fall, initial encounter; Y92.009 Unspecified place in unspecified non-institutional (private) residence as the place of occurrence of the external cause
CPT/HCPCS: 12001; 70450; 70486; 71045; 72125; 72170; 73564; 80053; 85025; 85610; 85730; 93041; 96361; 96374; 99284; G0480; 36415; 80320

== ENCOUNTER 2023-04-06 08:02 | Emergency (ER) | payer MEDICARE, OTHER ==
[~2023-04-06] VITALS: Ht 172 cm; Wt 134.0 kg
[~2023-04-06 08:02] MED LIST changes: +CEPH500T PO; +TRAM50TA3 PO
--- NOTE | 2023-04-06 08:16 | ED Lower Extremity ---
General Chief Complaint: Trauma-Non Activation Stated Complaint: LEFT LEG EDEMA Nursing Triage Note: PT TO [facility] WITH HX OF A FALL A COUPLE WEEKS AGO, LT LEG EDEMA AND TENDER, LT CHEST PAIN, CHRISTIAN IN LT KNEE FROM FALL Source: patient, EMS Exam Limitations: no limitations History of Present Illness Date Seen by Provider: Apr 06, 2023 Time Seen by Provider: 08:04 Initial Comments 72-year-old female presents to the emergency department today via EMS for left leg swelling. She states she had a fall 2 weeks ago and had multiple skin abrasions including 1 to her left knee. She has been on pain medication as well as antibiotics. She had some swelling in her leg immediately after the fall however this had completely resolved. Yesterday she noticed redness and swelling in the leg as well as some increased pain. No fevers chills nausea or vomiting. She is still taking antibiotics. Record review shows that her fall was on 03/25 and she was evaluated here in the emergency department. She had imaging of her pelvis and knee at that time which was negative. According to EMS she was ambulatory to the cot on their arrival. All other systems reviewed and negative except documented per HPI. Voice recognition software was used to help create this chart Allergies and Home Medications Allergies Coded Allergies: No Allergy Information Available (Unverified , 06/21/17) Patient Home Medication List Home Medication List Reviewed: Yes Amoxicillin/Potassium Clav (Amox Tr-K Clv 875-125 mg Tab) 875 Mg-125 Mg Tablet, 1 EACH PO BID Prescribed by: CARA DESIR on 08/28/22 0351 Cephalexin (Cephalexin) 500 Mg Tablet, 500 MG PO QID Prescribed by: ZULEMA RICE on 03/25/23 0513 Olmesartan Medoxomil (Olmesartan Medoxomil) 20 Mg Tablet, (Reported) Entered as Reported by: MORENITA SUMMERS on 08/28/22 0151 Sulfamethoxazole/Trimethoprim (Bactrim Ds Tablet) 1 Each Tablet, 1 EACH PO BID Prescribed by: NEHA SINGER MD on 04/06/23 1001 Tramadol HCl (Tramadol HCl) 50 Mg Tablet, 50 MG PO Q6H PRN for PAIN Prescribed by: CARA DESIR on 08/28/22 0352 Tramadol HCl (Tramadol HCl) 50 Mg Tablet, 50 MG PO Q4H Prescribed by: ZULEMA RICE on 03/25/23 0513 Venlafaxine HCl (Effexor Xr) 150 Mg Cap.er.24h, 150 MG PO DAILY, (Reported) Entered as Reported by: SPENCER XAVIER on 06/28/17 0751 Review of Systems Constitutional: see HPI Past Mogzybh-Doucjn-Erqoil Hx Patient Social History Tobacco Use?: No Use of E-Cig and/or Vaping dev: No Substance use?: No Alcohol Use?: No Immunizations Up To Date First/Initial COVID19 Vaccinat: x2 Second COVID19 Vaccination Jabier: x2 Third COVID19 Vaccination Date: x2 Past Medical History Surgery/Hospitalization HX: htn, depression, bilateral knee, hip, ankle, cholecystectomy, face lift Surgeries: Yes Gallbladder, Joint Replacement, Orthopedic Respiratory: No Cardiac: Yes Hypertension 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 0.0oz. 132.362614ot; 45.00 BMI Method: General Appearance: WD/WN, no apparent distress HEENT: pharynx normal Cardiovascular: regular rate, rhythm, systolic murmur ([place] best at the left sternal border) Respiratory: chest non-tender, lungs clear, normal breath sounds, no respiratory distress, no accessory muscle use Gastrointestinal: normal bowel sounds, non tender, soft Hips: bilateral hip non-tender, bilateral hip normal inspection, bilateral hip normal range of motion Legs: left leg other (Swelling and redness distal to the knee of the left leg. This is also tender to palpation. She has a good posterior tibial pulse. There is swelling on the dorsal aspect of the foot so unable to palpate dorsalis pedis pulse but she has good capillary refill and the leg is warm) Knees: left knee other (Large wound overlying the left anterior tibial region with christian in place. There is a base of eschar. Approximately measurement 4 x 2) Ankles: left ankle other (Swelling, redness on the left) Feet: left foot other (Swelling, redness on the left. 2+ pitting edema to the dorsum of the foot) Neurologic/Tendon: normal sensation, normal motor functions, normal tendon functions, responds to pain Skin: other (As described elsewhere) Procedures/Interventions Suture Size: 4-0 Progress/Results/Core Measures Results/Orders Lab Results Laboratory Tests Test 04/06/23 08:10 Range/Units White Blood Count 5.7 4.3-11.0 10^3/uL Red Blood Count 3.67 L 3.80-5.11 10^6/uL Hemoglobin 12.5 11.5-16.0 g/dL Hematocrit 38 35-52 % Mean Corpuscular Volume 104 H 80-99 fL Mean Corpuscular Hemoglobin 34 25-34 pg Mean Corpuscular Hemoglobin Concent 33 32-36 g/dL Red Cell Distribution Width 12.0 10.0-14.5 % Platelet Count 242 130-400 10^3/uL Mean Platelet Volume 11.7 9.0-12.2 fL Immature Granulocyte % (Auto) 0 % Neutrophils (%) (Auto) 63 42-75 % Lymphocytes (%) (Auto) 23 12-44 % Monocytes (%) (Auto) 8 0-12 % Eosinophils (%) (Auto) 5 0-10 % Basophils (%) (Auto) 1 0-10 % Neutrophils # (Auto) 3.6 1.8-7.8 10^3/uL Lymphocytes # (Auto) 1.3 1.0-4.0 10^3/uL Monocytes # (Auto) 0.5 0.0-1.0 10^3/uL Eosinophils # (Auto) 0.3 0.0-0.3 10^3/uL Basophils # (Auto) 0.1 0.0-0.1 10^3/uL Immature Granulocyte # (Auto) 0.0 0.0-0.1 10^3/uL Sodium Level 138 135-145 MMOL/L Potassium Level 4.9 3.6-5.0 MMOL/L Chloride Level 104 98-107 MMOL/L Carbon Dioxide Level 26 21-32 MMOL/L Anion Gap 8 5-14 MMOL/L Blood Urea Nitrogen 15 7-18 MG/DL Creatinine 0.78 0.60-1.30 MG/DL Estimat Glomerular Filtration Rate 81 BUN/Creatinine Ratio 19 Glucose Level 113 H 70-105 MG/DL Calcium Level 8.8 8.5-10.1 MG/DL Troponin I < 0.028 <0.028 NG/ML My Orders Orders - ENMANUELNEHA Anna DO Ekg Tracing (04/06/23 08:05) Us Venous Lower Ext Lt (04/06/23 08:10) Cbc And Automated Diff (04/06/23 08:10) Basic Metabolic Panel (04/06/23 08:10) Chest 1 View, Ap/Pa Only (04/06/23 08:20) Troponin I Tonya (04/06/23 08:20) Ekg Tracing (04/06/23 08:20) Tibia/Fibula, Left, 2 Views (04/06/23 09:15) Vital Signs/I&O 04/06/23 04/06/23 08:07 10:20 Temp 36.8 36.8 Pulse 81 87 Resp 20 20 B/P (MAP) 151/110 (124) 136/97 Pulse Ox 98 98 O2 Delivery Room Air Room Air Blood Pressure Mean: 124 Departure Communication (Admissions) Ultrasound is negative for any DVT or other acute pathology. Reviewed previous records showing no x-rays in this area so I went and got x-rays today which are negative. No leukocytosis, she is nontoxic and afebrile. Concern for possible cellulitis in the area. She was discharged on Keflex previously so we went ahead and upgraded this to Bactrim. We did remove the christian from her new wound on this side as well as the wound was healing over with eschar and this would likely limit a source of infection. Advise follow-up with your primary doctor or return to care for any severe concerns. Impression Primary Impression: Pain and swelling of lower leg Qualified Codes: M79.662 - Pain in left lower leg; M79.89 - Other specified soft tissue disorders Disposition: 01 HOME, SELF-CARE Condition: Stable Departure-Patient Inst. Referrals: IRINA SMITH MD (PCP/Family) Primary Care Physician Add. Discharge Instructions: Stop taking your current antibiotics and start taking the newly provided antibiotics. Follow-up with your primary doctor in the next 24 hours for reevaluation. Return to the emergency department if you develop any fevers or other severe concerns. All discharge instructions reviewed with patient and/or family. Voiced understanding. Scripts Sulfamethoxazole/Trimethoprim (Bactrim Ds Tablet) 1 Each Tablet 1 EACH PO BID for 10 Days, #20 TAB Prov: NEHA SINGER DO 04/06/23 NEHA SINGER DO Apr 06, 2023 08:15
[2023-04-06 08:19] LABS: BASOPHILS # (AUTO) 0.1 10^3/uL (0.0-0.1); BASOPHILS % (AUTO) 1 % (0-10); EOSINOPHILS # (AUTO) 0.3 10^3/uL (0.0-0.3); EOSINOPHILS % (AUTO) 5 % (0-10); HEMATOCRIT 38 % (35-52); HEMOGLOBIN 12.5 g/dL (11.5-16.0); LYMPHOCYTES # (AUTO) 1.3 10^3/uL (1.0-4.0); LYMPHOCYTES % (AUTO) 23 % (12-44); MEAN CORPUSCULAR HEMOGLOBIN 34 pg (25-34); MEAN CORPUSCULAR HGB CONC 33 g/dL (32-36); MEAN CORPUSCULAR VOLUME 104 fL (80-99); MEAN PLATELET VOLUME 11.7 fL (9.0-12.2); MONOCYTES # (AUTO) 0.5 10^3/uL (0.0-1.0); MONOCYTES % (AUTO) 8 % (0-12); NEUTROPHILS # (AUTO) 3.6 10^3/uL (1.8-7.8); NEUTROPHILS % (AUTO) 63 % (42-75); PLATELET COUNT 242 10^3/uL (130-400); WHITE BLOOD COUNT 5.7 10^3/uL (4.3-11.0)
[2023-04-06 08:26] LABS: POTASSIUM 4.9 MMOL/L (3.6-5.0)
[2023-04-06 08:27] LABS: CALCIUM 8.8 MG/DL (8.5-10.1)
[2023-04-06 08:32] LABS: CREATININE SERUM 0.78 MG/DL (0.60-1.30)
--- NOTE | 2023-04-06 08:50 | Diagnostic Imaging Report ---
INDICATION: Chest pain. COMPARISON: 03/25/2023 TECHNIQUE: Single radiograph of the chest dated 04/06/2023. FINDINGS: The cardiac silhouette is enlarged. No significant pulmonary vascular congestion. The lungs are clear of focal pulmonary opacity. No pleural effusion. No pneumothorax. Left shoulder arthroplasty. No acute osseous abnormality. IMPRESSION: Stable appearing examination demonstrating cardiomegaly which is likely accentuated by patient body habitus without superimposed acute cardiopulmonary abnormality. Dictated by: Dictated on workstation # [id number]
[2023-04-06] MEDS ORDERED: SULF1TAB38 PO (10:01)
--- NOTE | 2023-04-06 10:19 | Diagnostic Imaging Report ---
Procedure: US left lower extremity venous. Technique: Multiple real-time grayscale images were obtained over the left lower extremity in various projections. Additional duplex Doppler and color Doppler images were also obtained. Date: April 06, 2023. Indication: 72-year-old female, left lower leg pain and swelling. Comparison: None. Findings: The left common femoral vein, left superficial femoral vein, and left popliteal vein are all compressible with normal blood flow and response to augmentation. The imaged portions of the left greater saphenous vein and deep femoral vein are patent. The left posterior tibial and peroneal veins are patent. Impression: 1. Negative for left lower extremity deep venous thrombosis. Dictated by: Dictated on workstation # [id number]
[2023-04-06 10:20] VITALS: BP 136/97
--- NOTE | 2023-04-06 10:32 | Diagnostic Imaging Report ---
INDICATION: Left leg pain and swelling. AP and lateral views of the left tibia and fibula are obtained. No fracture or acute bony abnormality seen. There is a well aligned left knee prosthesis. There are surgical christian anterior to the left knee. IMPRESSION: No acute bone abnormality left tibia and fibula. Postop changes as above. Dictated by: Dictated on workstation # [id number]
== END 2023-04-06 10:20 | disposition home or self-care (01) ==
LOC: EDUNIT# 08:02 → ER 08:03
DX: R22.42 Localized swelling, mass and lump, left lower limb (principal); M79.605 Pain in left leg; E66.9 Obesity, unspecified; Z68.42 Body mass index [BMI] 45.0-49.9, adult
CPT/HCPCS: 36415; 71045; 73590; 80048; 84484; 85025; 93005